=== PATIENT | female | born 1995 | race Caucasian/White ===

== ENCOUNTER 2020-02-21 12:15 | Emergency (ER) | payer OTHER, SELFPAY ==
[2020-02-21 12:22] VITALS: BP 135/74; PULSE 76; RESP 18; TEMP 36.8; O2SAT 99
[2020-02-21] MEDS: MAG HYDROX/ALUMINUM/SIMETH SUS 20 ML, LIDOCAINE VISCOUS 2% 15 ML PO (12:59)
--- NOTE | 2020-02-21 12:59 | ED.DENTAL ---
HPI - Dental/Oral <THI Da Silva - Last Filed: 02/21/20 13:14> General Chief complaint: Dental/Oral Stated complaint: Mouth Sores, Infected and Swollen Time Seen by Provider: 02/21/20 12:29 Source: patient Mode of arrival: Ambulatory Limitations: no limitations History of Present Illness HPI Narrative: This is a 24 year female, nonsmoker, who is has no contributory medical history presents to ED with chief complain of multiple mouth sores with pain. She recently had moved to [place] and does not currently have PCP. She is working with [facility] to arrange PCP. Patient also recently delivered her child and is receiving care through [facility]. Patient report had canker sores before but not as this severe in the past. Patient reports difficulty eating and drinking due to pain. Denies fever, chills, nausea or vomiting. Related Data Previous Rx's Medication Instructions Recorded chlorhexidine gluconate 15 ml BUCCAL BID #118 ml 02/21/20 triamcinolone acetonide 1 applic MUCOUS MEMBRANE BID-TID 02/21/20 PRN #5 g Allergies Allergy/AdvReac Type Severity Reaction Status Date / Time Penicillins Allergy Unknown Verified 02/21/20 12:26 Sulfa (Sulfonamide Allergy Unknown Verified 02/21/20 12:26 Antibiotics) Review of Systems <THI Da Silva - Last Filed: 02/21/20 13:14> Review of Systems Narrative: General: Denies fever, chills, fatigue, malaise, sweats. HEENT: See HPI Respiratory: Denies dyspnea, cough, wheezing, hemoptysis, sputum. Cardiovascular: Denies chest pain, palpitations, orthopnea, edema. Gastrointestinal: Denies nausea, vomiting, abdominal pain, diarrhea, constipation, melena. : Denies dysuria, frequency, incontinence, hematuria, urinary retention. Musculoskeletal: Denies weakness, joint pain or bony pain. Skin: Denies rash, skin lesions, or other. Patient History <THI Da Silva - Last Filed: 02/21/20 13:14> Social History Smoking Status: Never smoker Smoking Status: Never smoker alcohol intake frequency: 0-2 drinks per day Substance Use Type: does not use Exam <Seabstien MendozaTHI henderson - Last Filed: 02/21/20 13:14> Narrative Exam Narrative: General appearance: well developed, well nourished, in tears during exam due to pain. Head: normocephalic, atraumatic, no scalp lesions, non-tender. ENT: Hearing grossly intact. Nose without bleeding, purulent discharge, septal hematoma or deviation. Turbinate without erythema or swelling. Facial sinuses nontender to palpate. Mucous membrane moist, several mucosal ulcerative in upper and lower inner mucosal membranes. Throat without erythema, tonsillar hypertrophy or exudate. Uvula in midline, airway patent. Neck/Thyroid: neck supple, full range of motion, no visible masses or meningeal signs. No JVD, non-tender without lymphadenopathy. Skin: no suspicious rashes, lesions over visible areas. Warm and dry and appropriate color for ethnicity. Heart: no clubbing, no cyanosis, no edema. Lungs: Breathing even and unlabored. No stridor. No accessory muscles used. Able to speak in full sentences. Chest: normal shape and expansion. Abdomen: non-obese, non-distended. Neurologic: alert and oriented. Cognitive exam, MEDICAL REFERRAL COORDINATOR and PNS grossly intact on informal exam. Psych: good eye contact, normal affect. Initial Vital Signs Initial Vital Signs: Vital Signs Temperature 98.3 F 02/21/20 12:22 Pulse Rate 76 02/21/20 12:22 Respiratory Rate 18 02/21/20 12:22 Blood Pressure 135/74 02/21/20 12:22 Pulse Oximetry 99 02/21/20 12:22 <Albino Schmidt DO - Last Filed: 02/22/20 09:31> Initial Vital Signs Initial Vital Signs: Vital Signs Temperature 98.3 F 02/21/20 12:22 Pulse Rate 76 02/21/20 12:22 Respiratory Rate 18 02/21/20 12:22 Blood Pressure 135/74 02/21/20 12:22 Pulse Oximetry 99 02/21/20 12:22 Scores <Sebastien RushTHI - Last Filed: 02/21/20 13:14> GCS [place] coma scale eye opening: Spontaneous [place] coma scale verbal response: Orientated [place] coma scale motor response: Obey commands [place] coma scale total score: 15 qSOFA Altered Mental Status (GCS <15): No Respiratory rate greater than/equal to 22: No Systolic blood pressure less than or equal to 100: No qSOFA Total: 0 0-1 Not High Risk 1-3 High risk Course <THI Da Silva - Last Filed: 02/21/20 13:14> Orders Ordered: Discontinued Medications Al Hydrox/Mg Hydrox/Simethicone 20 ml/ Lidocaine HCl 15 ml 0 ml PO NOW ONE Stop: 02/21/20 12:55 Last Admin: 02/21/20 12:59 Dose: 35 ml Documented by: RYAN Vital Signs Vital signs: Vital Signs - 8 hr 02/21/20 12:22 Temperature 98.3 F Pulse Rate 76 Respiratory Rate 18 Blood Pressure 135/74 Pulse Oximetry 99 <Albino Schmidt DO - Last Filed: 02/22/20 09:31> Orders Ordered: Discontinued Medications Al Hydrox/Mg Hydrox/Simethicone 20 ml/ Lidocaine HCl 15 ml 0 ml PO NOW ONE Stop: 02/21/20 12:55 Last Admin: 02/21/20 12:59 Dose: 35 ml Documented by: RYAN Vital Signs Vital signs: Vital Signs - 8 hr 02/21/20 12:22 Temperature 98.3 F Pulse Rate 76 Respiratory Rate 18 Blood Pressure 135/74 Pulse Oximetry 99 MDM - Dental/Oral <THI Da Silva - Last Filed: 02/21/20 13:14> Differential Diagnosis Differential diagnosis: Likely aphthous ulcer and other (HSV oral lesions, lon oral infection) Medical Records Attestation: I reviewed the patient's medical records. [facility] Narrative Medical decision making narrative: Patient has multiple canker sore like lesions in upper and lower inner mucosal membrane. Right lower ulcerative mucosal lesion near the corner of mouth measuring about 7-8 mm and culture obtained. Physical exam not consistent with HSV oral lesion or oral lon infection. Patient was medicated with GI cocktail for discomfort. Discharged to home with triamcinolone oral base paste and chlorhexidine rinse to use as needed for her symptoms. Patient avoid foods and drinks taken increased pain and to hydrate well. Patient advised to mix oral Maalox and Benadryl to swish and spit as needed for pain as well. Return precautions were discussed with patient and she verbalized understanding and agreement with the treatment plan. Discharge Plan Departure Patient Disposition: Home Clinical Impression: Canker sore Instructions: DI for Aphthous Ulcers (Canker Sores) Activity Restrictions/Additional Instructions: You have been diagnosed with [canker oral lesions]. What to do: *Take your medications as directed. Please use triamcinolone oral paste on affected site 2 to 4 times a day as needed for pain. You can mix benadryl liquid elixir and Mylanta/Maalox 5-10 mL togther and swish and spit 3 to 4 times a day as needed for discomfort. You can take [id number] Tylenol as needed for pain. Chlorhexidine gluconate mouthwash 2 to 3 times a day. Triamcinolone oral paste and chlorhexidine mouthwash have been transmitted to [facility] in [place]. *Follow up with your primary care provider in 2-3 days, call for an appointment. Let them know you were seen in the ED and that we asked you to be seen in follow up. Please contact [facility] to set primary care physician. Please avoid foods causing pain such as acidic food or juices. *Return to ED if you have any new, worsening, or concerning symptoms, such as [worsening pain, unable to tolerate fluids, chest pain, breathing difficulty, lightheadedness, fever or any acute concerns]. Prescriptions: New triamcinolone acetonide 0.1 % paste 1 applic mucous membrane BID-TID PRN (Reason: mouth irritation) Qty: 5 RF: 0 chlorhexidine gluconate 0.12 % mouthwash 15 ml buccal BID Qty: 118 RF: 0 Referrals: [facility] [Outside] [facility] [Outside] <Albino Schmidt DO - Last Filed: 02/22/20 09:31> Cosign ED Attending Cossandyature Attestation: I was immediately available in the department for consultation. This documentation has been reviewed and I agree with assessment and plan. Supervised by Albino Schmidt DO
== END 2020-02-21 13:10 | disposition home or self-care (01) ==
PROVIDERS: Emergency Provider Nurse Practitioner Family
DX: K12.0 Recurrent oral aphthae (principal)
CPT/HCPCS: 99281; 99283

== ENCOUNTER → 2020-04-15 08:50 | Outpatient (CLI) | payer OTHER, SELFPAY ==
[2020-04-15 09:40] LABS: Hematocrit 43.9 % (36-46); Hemoglobin 14.8 g/dL (12.0-16.0); Mean Corpuscular HGB Conc 33.8 % (30-36); Mean Corpuscular Hemoglobin 31.1 PG (26-34); Platelet Count 166 X10^3/uL (150-400); Red Blood Cell Count 4.77 X10^6/uL (4.0-5.2); Red Cell Distribution Width 13.2 % (11.6-14.8); White Blood Cell Count 5.6 X10^3/uL (4.5-11.0)
[2020-04-15 09:59] LABS: Alanine Aminotransferase 17 IU/L (<35); Albumin 4.3 g/dL (3.5-5.0); Albumin Globulin Ratio 1.4 (1.0-2.8); Alkaline Phosphatase 78 U/L (38-126); Aspartate Aminotransferase 24 IU/L (14-36); BUN Creatinine Ratio 22.1 (6-22); Bilirubin Total 0.2 mg/dL (0.2-1.3); Blood Urea Nitrogen 15 mg/dL (7-17); Calcium 9.5 mg/dL (8.4-10.2); Carbon Dioxide 28 mmol/L (22-32); Chloride 106 mmol/L (98-107); Cholesterol 180 mg/dL (140-199); Estimated Glomerular Filt Rate > 60.0 mL/min (>60); Glucose 87 mg/dL (70-100); HDL Cholesterol 74 mg/dL (40-60); HEMOLYSIS 15 (0-50); LDL Cholesterol Calculated 66 mg/dL (<100); Potassium 4.3 mmol/L (3.4-5.1); Sodium 138 mmol/L (137-145); Total Protein 7.3 g/dL (6.3-8.2); Triglycerides 199 mg/dL (35-150)
[2020-04-15 10:30] LABS: TSH w/ Reflex to FT4 1.15 uIU/mL (0.47-4.68)
== END ==
PROVIDERS: PCP Nurse Practitioner Family; Referring Provider Nurse Practitioner Family; Visit Provider Nurse Practitioner Family
DX: Z00.00 Encounter for general adult medical examination without abnormal findings (principal); F41.9 Anxiety disorder, unspecified; J45.20 Mild intermittent asthma, uncomplicated; Z13.6 Encounter for screening for cardiovascular disorders
CPT/HCPCS: 36415; 80053; 80061; 84443; 85027

== ENCOUNTER 2020-07-30 19:24 | Emergency (ER) | payer OTHER, SELFPAY ==
[2020-07-30 19:48] VITALS: BP 142/82; PULSE 68; RESP 16; TEMP 36.4; O2SAT 97; BMI 25.8
--- NOTE | 2020-07-30 20:41 | DI.RAD.S_ITS ---
PROCEDURE: XR CHEST 2V INDICATIONS: swallowed foreign body/throat pain TECHNIQUE: 2 views of the chest were acquired. COMPARISON: None. FINDINGS: Surgical changes and devices: None. Lungs and pleura: Lungs are clear. No pleural effusions or pneumothorax. Mediastinum: Mediastinal contours are normal. Heart size is normal. Bones and chest wall: No suspicious bony abnormalities. Soft tissues appear unremarkable. IMPRESSION: No acute cardiopulmonary abnormality Dictated by: Sonido Garner M.D. on 07/30/2020 at 21:22 Approved by: Sonido Garner M.D. on 07/30/2020 at 21:23
--- NOTE | 2020-07-30 21:27 | DI.RAD.S_ITS ---
PROCEDURE: XR ABDOMEN 1V INDICATIONS: swallowed metal foreign body/ pain TECHNIQUE: One view of the abdomen acquired. COMPARISON: None. FINDINGS: Surgical changes and devices: None. Bowel: Bowel gas pattern is normal. Soft tissues: No suspicious abdominal calcifications. Visualized solid organ contours appear normal in size. An 8 millimeter metallic filament is seen in the left mid abdomen. A more specific location cannot be ascertained by plain film. Bones: No suspicious bony lesions. IMPRESSION: 8 millimeter metallic filament in the left mid abdomen. Dictated by: Sonido Garner M.D. on 07/30/2020 at 21:52 Approved by: Sonido Garner M.D. on 07/30/2020 at 21:53
--- NOTE | 2020-07-30 21:40 | PC.NURSE ---
pt states she was eating potato chips tonight and felt a piece of her permanent retainer on the lower teeth break off and she swallowed it. having throat pain and abd pain. anxious. states headache. denies vomiting or bloody saliva, airway intact, breathing/talking normally. lungs clear
--- NOTE | 2020-07-30 22:29 | ED_ITS ---
HPI - General Adult General Chief complaint: Upper Respiratory Symptoms Stated complaint: Swallowed part of retainer, pain in throat choking Time Seen by Provider: 07/30/20 22:29 History of Present Illness HPI narrative: Otherwise healthy 25-year-old woman who inadvertently swallowed a small bit of metal that was a permanent retainer that had been glued to her teeth. She is having some mild abdominal pain. She has been otherwise completely healthy. Related Data Home Medications Medication Instructions Recorded Confirmed albuterol PO 03/01/20 cholecalciferol (vitamin D3) 25 25 mcg PO DAILY 03/01/20 03/01/20 mcg (1,000 unit) capsule Previous Rx's Medication Instructions Recorded fluticasone 250 mcg-salmeterol 50 1 inh INHALATION BID #60 ea 03/01/20 mcg/dose blistr powdr for inhalation citalopram 40 mg tablet 40 mg PO DAILY #90 tab 04/19/20 montelukast 10 mg tablet 10 mg PO DAILY #90 tab 04/19/20 norethindrone (contraceptive) 0.35 0.35 mg PO DAILY #84 tab 06/14/20 mg tablet famotidine 20 mg tablet 20 mg PO DAILY #60 tab 06/19/20 prenat.vits,kell,xbk-[id number] 1 tab PO DAILY #90 tab 06/29/20 Allergies Allergy/AdvReac Type Severity Reaction Status Date / Time Penicillins Allergy Unknown Verified 03/01/20 14:26 Sulfa (Sulfonamide Allergy Unknown Verified 03/01/20 14:26 Antibiotics) Review of Systems Review of Systems Narrative: All systems reviewed and are unremarkable except as noted in HPI Patient History Medical History Anxiety Depression GERD (gastroesophageal reflux disease) (2019) Moderate intermittent asthma Skin wound from surgical incision Social History Smoking Status: Never smoker second hand exposure: No alcohol intake: never substance use type: does not use Smoking Status: Never smoker alcohol intake frequency: 0-2 drinks per day Substance Use Type: does not use Exam Narrative Exam Narrative: General: Alert appropriate in no acute distress Respiratory: Able to speak in full sentences, no obvious respiratory distress Skin: No obvious rashes, warm and dry Abdomen: Normal bowel tones, soft nontender Neurologic: Grossly intact no obvious asymmetries or abnormalities Psych: appropriate insight and affect, cooperative Initial Vital Signs Initial Vital Signs: Vital Signs Temperature 97.5 F L 07/30/20 19:48 Pulse Rate 68 07/30/20 19:48 Respiratory Rate 16 07/30/20 19:48 Blood Pressure 142/82 H 07/30/20 19:48 Pulse Oximetry 97 07/30/20 19:48 Course Orders Ordered: ED Orders 07/30/20 20:41 Chest [XR chest 2V] Stat 07/30/20 21:27 XR abdomen 1V Stat Vital Signs Vital signs: Vital Signs - 8 hr 07/30/20 19:48 07/30/20 22:42 Temperature 97.5 F L Pulse Rate 68 68 Respiratory Rate 16 14 Blood Pressure 142/82 H 126/82 Pulse Oximetry 97 98 Medical Decision Making Imaging Data Chest x-ray: Radiologist's Impression: FINDINGS: Surgical changes and devices: None. Lungs and pleura: Lungs are clear. No pleural effusions or pneumothorax. Mediastinum: Mediastinal contours are normal. Heart size is normal. Bones and chest wall: No suspicious bony abnormalities. Soft tissues appear unremarkable. IMPRESSION: No acute cardiopulmonary abnormality Dictated by: Sonido Garner M.D. on 07/30/2020 at 21:22 Abdominal x-ray: Radiologist's Impression: FINDINGS: Surgical changes and devices: None. Bowel: Bowel gas pattern is normal. Soft tissues: No suspicious abdominal calcifications. Visualized solid organ contours appear normal in size. An 8 millimeter metallic filament is seen in the left mid abdomen. A more specific location cannot be ascertained by plain film. Bones: No suspicious bony lesions. IMPRESSION: 8 millimeter metallic filament in the left mid abdomen. Dictated by: Sonido Garner M.D. on 07/30/2020 at 21:52 MDM Narrative Medical decision making narrative: 25-year-old woman who clearly did swallow the small bit of middle that had been acting as a permit dental retainer. It is clearly well past her stomach. At this point will very likely passed through completely without complication. It is small enough that it could conceivably get stuck or cause small perforation. She is counseled on returning to the emergency room with any increased abdominal pain. Discharge Plan Departure Patient Disposition: Home Clinical Impression: Foreign body, swallowed Qualifiers: Encounter type: initial encounter Qualified Code(s): T18.9XXA - Foreign body of alimentary tract, part unspecified, initial encounter Instructions: DI for Foreign Body, Swallowed-Adult Activity Restrictions/Additional Instructions: Thank you for coming in today The x-ray does look like that bit of retainer has made it well into your intestines and is well on its way to working its way out. It is small enough that unless you are digging through your poop you likely will not notice it coming out If you have increasing abdominal pain in the next few days it would be worth returning to the emergency department to reimage and make sure that it has completed its entire transit:) Prescriptions: No Action norethindrone (contraceptive) [Rosana] 0.35 mg tablet 0.35 mg PO DAILY Qty: 84 RF: 1 famotidine [Acid Washing Machine Loader And Puller (famotidine)] 20 mg tablet 20 mg PO DAILY Qty: 60 RF: 0 prenat.vits,kell,glv-[id number]-[id number] Tablet 1 tab PO DAILY Qty: 90 RF: 0 citalopram 40 mg tablet 40 mg PO DAILY Qty: 90 RF: 3 montelukast 10 mg tablet 10 mg PO DAILY Qty: 90 RF: 2 cholecalciferol (vitamin D3) 25 mcg (1,000 unit) capsule 25 mcg PO DAILY RF: 0 albuterol PO RF: 0 fluticasone propion-salmeterol [Advair Diskus] 250-50 mcg/dose blister with device 1 inh inhalation BID Qty: 60 RF: 2 Referrals: Lencho Kennedy ARNP [Primary Care Provider] -
[2020-07-30 22:42] VITALS: BP 126/82; PULSE 68; RESP 14; O2SAT 98
== END 2020-07-30 22:42 | disposition home or self-care (01) ==
PROVIDERS: Emergency Provider Emergency Medicine; PCP Nurse Practitioner Family
DX: T18.9XXA Foreign body of alimentary tract, part unspecified, initial encounter (principal); R10.9 Unspecified abdominal pain
CPT/HCPCS: 71046; 74018; 99283

== ENCOUNTER → 2021-04-12 09:13 | Outpatient (CLI) | payer OTHER, SELFPAY ==
[2021-04-12 10:46] LABS: Hemoglobin 14.4 g/dL (12.0-16.0); Mean Corpuscular HGB Conc 34.2 % (30-36); Mean Corpuscular Volume 90.7 fL (80-100); Platelet Count 175 X10^3/uL (150-400); Red Blood Cell Count 4.64 X10^6/uL (4.0-5.2); Red Cell Distribution Width 13.2 % (11.6-14.8); White Blood Cell Count 5.7 X10^3/uL (4.5-11.0)
[2021-04-12 11:01] LABS: Alanine Aminotransferase 20 IU/L (<35); Albumin 4.6 g/dL (3.5-5.0); Albumin Globulin Ratio 1.4 (1.0-2.8); Alkaline Phosphatase 64 U/L (38-126); Aspartate Aminotransferase 29 IU/L (14-36); BUN Creatinine Ratio 17.5 (6-22); Bilirubin Total 0.4 mg/dL (0.2-1.3); Blood Urea Nitrogen 11 mg/dL (7-17); Carbon Dioxide 26 mmol/L (22-32); Chloride 107 mmol/L (98-107); Cholesterol 232 mg/dL (140-199); Estimated Glomerular Filt Rate > 60.0 mL/min (>60); Globulin 3.3 g/dL (1.7-4.1); Glucose 92 mg/dL (70-100); HDL Cholesterol 87 mg/dL (40-60); HEMOLYSIS < 15 (0-50); LDL Cholesterol Calculated 117 mg/dL (<100); Potassium 4.3 mmol/L (3.4-5.1); Sodium 139 mmol/L (137-145); Total Protein 7.9 g/dL (6.3-8.2); Triglycerides 139 mg/dL (35-150)
== END ==
PROVIDERS: PCP Nurse Practitioner Family; Referring Provider Nurse Practitioner Family; Visit Provider Nurse Practitioner Family
DX: F41.9 Anxiety disorder, unspecified (principal); Z13.6 Encounter for screening for cardiovascular disorders; N92.6 Irregular menstruation, unspecified; Z00.00 Encounter for general adult medical examination without abnormal findings
CPT/HCPCS: 36415; 80053; 80061; 84443; 85027